=== PATIENT | female | born 1955 | race Two or more races ===

== ENCOUNTER 2020-08-22 09:15 | Day surgery (SDC) | payer OTHER | END 2020-08-22 13:00 | disposition home or self-care (01) | LOC: AMB-ENDOS 09:15 | PROVIDERS: ATTEND Colon & Rectal Surgery | DX: D12.8 Benign neoplasm of rectum (principal); Z20.822 Contact with and (suspected) exposure to COVID-19 ==

== ENCOUNTER 2021-02-13 06:42 | Day surgery (SDC) | payer OTHER | END 2021-02-13 11:50 | disposition home or self-care (01) | LOC: AMB-ENDOS 06:42 | PROVIDERS: ATTEND Colon & Rectal Surgery | DX: K62.89 Other specified diseases of anus and rectum (principal); K64.8 Other hemorrhoids; Z20.822 Contact with and (suspected) exposure to COVID-19 ==

== ENCOUNTER 2021-05-15 07:49 | Day surgery (SDC) | payer OTHER | END 2021-05-15 15:50 | disposition home or self-care (01) | LOC: AMB-ENDOS 07:49 | PROVIDERS: ATTEND Colon & Rectal Surgery | DX: C20 Malignant neoplasm of rectum (principal); E11.9 Type 2 diabetes mellitus without complications; K57.30 Diverticulosis of large intestine without perforation or abscess without bleeding ==

== ENCOUNTER 2021-07-18 07:45 | Inpatient (IN) | payer OTHER ==
[~2021-07-18] VITALS: Ht 152.4 cm; Wt 58.1 kg
[2021-07-18] MEDS ORDERED: CYMBAL PO (11:03)
[2021-07-18] MEDS ORDERED: LIRICA PO (11:04)
[2021-07-22] MEDS ORDERED: DULOXETINE HCL30 MG (10:08)
[2021-07-22] MEDS ORDERED: PREGABALIN150 MG (10:08)
[2021-07-22] MEDS ORDERED: GABAPENTIN400 MG (10:08)
[2021-07-22] MEDS ORDERED: PANTOPRAZOLE SO40 MG (10:08)
== END 2021-07-27 18:51 | disposition home or self-care (01) | DRG 331 ==
LOC: SURH 07-22 07:00 → O/R 07-22 08:31 → SURH 07-22 19:03
PROVIDERS: ADMIT Colon & Rectal Surgery; ATTEND Colon & Rectal Surgery
PROC: 07BC4ZZ Excision of Pelvis Lymphatic, Percutaneous Endoscopic Approach (ICD-10-PCS; 2021-07-22)
PROC: 0DTP4ZZ Resection of Rectum, Percutaneous Endoscopic Approach (ICD-10-PCS; 2021-07-22)
PROC: 0DTN4ZZ Resection of Sigmoid Colon, Percutaneous Endoscopic Approach (ICD-10-PCS; 2021-07-22)
PROC: 0DJD8ZZ Inspection of Lower Intestinal Tract, Via Natural or Artificial Opening Endoscopic (ICD-10-PCS; 2021-07-22)
PROC: 4A1BXSH Monitoring of Gastrointestinal Vascular Perfusion using Indocyanine Green Dye, External Approach (ICD-10-PCS; 2021-07-22)
PROC: 0D1B4Z4 Bypass Ileum to Cutaneous, Percutaneous Endoscopic Approach (ICD-10-PCS; principal; 2021-07-22 07:00)
DX: C20 Malignant neoplasm of rectum (principal); K57.30 Diverticulosis of large intestine without perforation or abscess without bleeding; K63.5 Polyp of colon; R59.0 Localized enlarged lymph nodes

== ENCOUNTER 2022-04-14 09:15 | Inpatient (IN) | payer OTHER ==
[~2022-04-14] VITALS: Ht 152.4 cm; Wt 61.7 kg
[~2022-04-14 09:15] MED LIST: CYMBAL PO; DULOXETINE HCL30 MG; GABAPENTIN400 MG; LIRICA PO; PANTOPRAZOLE SO40 MG; PREGABALIN150 MG
[2022-04-14] MEDS ORDERED: [UNRECOGNIZED DRUG - CODE] PO (12:57)
[2022-04-14] MEDS ORDERED: ESTAZOLAM2 MG PO (12:57)
[2022-04-14] MEDS ORDERED: [UNRECOGNIZED DRUG - OTHER] PO (12:58)
[2022-04-18] MEDS ORDERED: ESCITALOPRAM OX10 MG (11:15)
[2022-04-18] MEDS ORDERED: PREGABALIN150 MG (11:15)
[2022-04-18] MEDS ORDERED: MONTELUKAST SOD10 MG (11:15)
[2022-04-21] MEDS ORDERED: ESTRADIOL10 MCG (10:00)
[2022-04-21] MEDS ORDERED: DULOXETINE HCL60 MG (10:01)
[2022-04-21] MEDS ORDERED: GABAPENTIN100 M2 (10:02)
== END 2022-04-22 17:18 | disposition home or self-care (01) | DRG 331 ==
LOC: O/R 04-18 07:00 → SURH 04-18 08:45 → SURG 04-18 13:27
PROVIDERS: ADMIT Colon & Rectal Surgery; ATTEND Colon & Rectal Surgery
PROC: 0DB84ZZ Excision of Small Intestine, Percutaneous Endoscopic Approach (ICD-10-PCS; 2022-04-18)
PROC: 3E0F7SF Introduction of Other Gas into Respiratory Tract, Via Natural or Artificial Opening (ICD-10-PCS; 2022-04-18)
PROC: 0DQB4ZZ Repair Ileum, Percutaneous Endoscopic Approach (ICD-10-PCS; principal; 2022-04-18 08:45)
DX: Z43.2 Encounter for attention to ileostomy (principal); K57.30 Diverticulosis of large intestine without perforation or abscess without bleeding; Z85.048 Personal history of other malignant neoplasm of rectum, rectosigmoid junction, and anus

== ENCOUNTER 2022-04-16 07:23 | Day surgery (SDC) | payer OTHER ==
[~2022-04-16 07:23] MED LIST changes: +ESTAZOLAM2 MG PO; +[UNRECOGNIZED DRUG - CODE] PO; +[UNRECOGNIZED DRUG - OTHER] PO
== END 2022-04-16 14:20 | disposition home or self-care (01) ==
LOC: AMB-ENDOS 07:23
PROVIDERS: ATTEND Colon & Rectal Surgery
DX: Z85.048 Personal history of other malignant neoplasm of rectum, rectosigmoid junction, and anus (principal); K63.89 Other specified diseases of intestine; K64.8 Other hemorrhoids; Z20.822 Contact with and (suspected) exposure to COVID-19

== ENCOUNTER 2024-02-08 06:00 | Day surgery (SDC) | payer OTHER ==
[~2024-02-08 06:00] MED LIST changes: +DULOXETINE HCL60 MG; +ESCITALOPRAM OX10 MG; +ESTRADIOL10 MCG; +GABAPENTIN100 M2; +LIRICA; +MONTELUKAST SOD10 MG; +ORAPRED ODT10 MG PO; +TREXALL10 MG PO
[2024-02-08] MEDS ORDERED: CEFTRIAXONE SODIUM 2,000 MG VIAL IV ONE (08:30)
[2024-02-08] MEDS ORDERED: METRONIDAZOLE/SODIUM CHLORIDE 500 MG/100 ML PIGGYBACK IV ONE ×2 (08:30)
[2024-02-08] MEDS ORDERED: BUPIVACAINE HCL 30 ML VIAL IJ ONE (08:45)
[2024-02-08] MEDS ORDERED: LIDOCAINE HCL 1%/EPINEPHRINE 20ML VIAL IJ ONE (08:45)
== END 2024-02-08 13:00 | disposition home or self-care (01) ==
LOC: CIR.AMB 06:00
PROVIDERS: ATTEND Colon & Rectal Surgery
DX: R15.9 Full incontinence of feces (principal)
CPT/HCPCS: 64581; 95971; C1778

== ENCOUNTER 2024-02-22 05:41 | Day surgery (SDC) | payer OTHER ==
[2024-01-29 10:35] VITALS: BP 119/73
[~2024-02-22] VITALS: Ht 152.4 cm; Wt 59.9 kg
[2024-02-22] MEDS ORDERED: BUPIVACAINE HCL 30 ML VIAL IJ ONE (11:15)
[2024-02-22] MEDS ORDERED: METRONIDAZOLE/SODIUM CHLORIDE 500 MG/100 ML PIGGYBACK IV ONE (11:15)
[2024-02-22] MEDS ORDERED: CEFTRIAXONE SODIUM 2,000 MG VIAL IV ONE (11:15)
[2024-02-22] MEDS ORDERED: LIDOCAINE HCL 1%/EPINEPHRINE 20ML VIAL IJ ONE (11:15)
== END 2024-02-22 13:20 | disposition home or self-care (01) ==
LOC: CIR.AMB 05:41
PROVIDERS: ATTEND Colon & Rectal Surgery
DX: R15.9 Full incontinence of feces (principal)
CPT/HCPCS: 64590; 95971; C1767